=== PATIENT | female | born 1975 | race Caucasian/White ===

== ENCOUNTER 2018-08-14 02:39 | Outpatient (CLI) | payer SELFPAY ==
--- NOTE | 2018-08-14 08:28 | RAD ---
SANTOS CHEST: Date: 08/14/18 INDICATION: Employee health evaluation. No comparison. FINDINGS: Stranding in the left lower lobe. No infiltrate or vascular congestion. Heart size normal. Mediastinu m unremarkable. IMPRESSION: Chronic appearing stranding in the left lower lobe. No evidence of acute infiltrate. POS: [facility]
== END 2018-08-14 02:40 | disposition home or self-care (01) ==
LOC: MADRAD 02:39
PROVIDERS: ATTEND Family Medicine
DX: R76.11 Nonspecific reaction to tuberculin skin test without active tuberculosis (principal)
CPT/HCPCS: 71045